=== PATIENT | male | born 1960 ===

== ENCOUNTER 2016-09-06 11:04 | Emergency (ER) | payer SELFPAY ==
[2016-09-06 11:12] VITALS: BP 145/98
[2016-09-06 11:37] LABS: Eosinophils % (Auto) 2.8 % (0.0-4.3); Hematocrit 43.3 % (35.5-45.6); Hemoglobin 14.1 gm/dl (11.8-15.2); Mean Corpuscular HGB Conc 33 % (32-34); Mean Corpuscular Hemoglobin 27 pg (28-32); Mean Corpuscular Volume 83 fl (84-94); Platelet Count 257 K/mm3 (140-440); Red Cell Distribution Width 14.7 % (13.2-15.2); White Blood Count 6.8 K/mm3 (4.5-11.0)
[2016-09-06 11:53] LABS: Alanine Aminotransferase 19 units/L (7-56); Albumin 4.2 g/dL (3.9-5); Albumin/Globulin Ratio 1.4 %; Alkaline Phosphatase 141 units/L (35-129); Anion Gap 19 mmol/L; BUN/Creatinine Ratio 12.72; Blood Urea Nitrogen 14 mg/dL (9-20); Carbon Dioxide 25 mmol/L (22-30); Chloride 103.3 mmol/L (98-107); Glucose 118 mg/dL (75-100); Lipase 54 units/L (13-60); Potassium 4.1 mmol/L (3.6-5.0); Sodium 143 mmol/L (137-145); Total Protein 7.2 g/dL (6.3-8.2)
[2016-09-06 12:11] LABS: Bilirubin,Urine NEG (Negative); Blood,Urine MOD (Negative); Ketones,Urine TR mg/dL (Negative); Leukocyte Esterase,Urine NEG (Negative); Mucus,Urine FEW /HPF; Nitrite,Urine NEG (Negative); Protein,Urine <15 mg/dL mg/dL (Negative)
--- NOTE | 2016-09-11 13:11 | ED Elopement Review ---
ED Pt Elopement review - Results review Lab results: Laboratory Tests 09/06/16 09/06/16 09/06/16 11:14 11:14 11:38 WBC 6.8 RBC 5.20 H Hgb 14.1 Hct 43.3 MCV 83 L MCH 27 L MCHC 33 RDW 14.7 Plt Count 257 Lymph % (Auto) 35.3 H [place] % (Auto) 9.8 H Eos % (Auto) 2.8 Baso % (Auto) 1.0 Lymph # 2.4 [place] # 0.7 Eos # 0.2 Baso # 0.1 Seg Neutrophils % 51.1 Seg Neutrophils # 3.5 Sodium 143 Potassium 4.1 Chloride 103.3 Carbon Dioxide 25 Anion Gap 19 BUN 14 Creatinine 1.1 Estimated GFR > 60 BUN/Creatinine Ratio 12.72 Glucose 118 H Calcium 9.0 Total Bilirubin 0.40 AST 15 ALT 19 Alkaline Phosphatase 141 H Total Protein 7.2 Albumin 4.2 Albumin/Globulin Ratio 1.4 Lipase 54 Urine Color Yellow Urine Turbidity Clear Urine pH 5.0 Ur Specific [place] 1.025 Urine Protein <15 mg/dl Urine Glucose (UA) Neg Urine Ketones Tr Urine Blood Mod Urine Nitrite Neg Urine Bilirubin Neg Urine Urobilinogen 2.0 Ur Leukocyte Esterase Neg Urine WBC (Auto) 1.0 Urine RBC (Auto) 4.0 U Epithel Cells (Auto) < 1.0 Urine Mucus Few - Call Back decision Pt Call Back Decision: Pt to F/U with PMD (Call to check if continued pain - if yes follow up PCP)
== END 2016-09-06 21:40 | disposition left against medical advice (07) ==
LOC: ED 11:04
DX: R07.9 Chest pain, unspecified (principal); Z53.21 Procedure and treatment not carried out due to patient leaving prior to being seen by health care provider
CPT/HCPCS: 36415; 80053; 81001; 83690; 85025